=== PATIENT | male | born 1960 | race American Indian/Alaskan Native ===

== ENCOUNTER 2017-05-06 13:19 | Emergency (ER) | payer OTHER ==
[2017-05-06] MEDS ORDERED: Ketorolac 60 MG/2 ML SDV IM ONE (14:14)
[2017-05-06] MEDS ORDERED: Ondansetron 4 MG Tab.DIS PO ONE (14:15)
--- NOTE | 2017-05-06 15:14 | EDM.PDOC ---
ED HPI GENERAL MEDICAL PROBLEM - General Chief Complaint: General Stated Complaint: COUGH/CHEST PAIN/TROUBLE BREATHING Time Seen by Provider: 05/06/17 13:55 Source of Information: Reports: Patient History Limitations: Reports: No Limitations - History of Present Illness INITIAL COMMENTS - FREE TEXT/NARRATIVE: History of present illness: []Patient's had cold symptoms for 2 weeks and has been progressively worsening. He complains of body aches vomiting, diarrhea, cough and weakness. Review of systems: As per history of present illness and below otherwise all systems reviewed and negative. Past medical history: As per history of present illness and as reviewed below otherwise noncontributory. Surgical history: As per history of present illness and as reviewed below otherwise noncontributory. Social history: No reported history of drug or alcohol abuse. Family history: As per history of present illness and as reviewed below otherwise noncontributory. Physical exam: General: Well developed, well nourished in NAD HEENT: Atraumatic, normocephalic, pupils reactive, negative for conjunctival pallor or scleral icterus, mucous membranes moist, throat clear, neck supple, nontender, trachea midline. Lungs: Clear to auscultation, breath sounds equal bilaterally, chest nontender. Heart: S1S2, regular, negative for clicks, rubs, or JVD. Abdomen: Soft, nondistended, nontender. Negative for masses or hepatosplenomegaly. Negative for costovertebral tenderness. Pelvis: Stable nontender. Genitourinary: Deferred. Rectal: Deferred. Extremities: Atraumatic, negative for cords or calf pain. Neurovascular unremarkable. Neuro: Awake, alert, oriented. Cranial nerves II through XII unremarkable. Cerebellum unremarkable. Motor and sensory unremarkable throughout. Exam nonfocal. Diagnostics: []Influenza A positive chest x-ray is negative Therapeutics: [] Impression: []Influenza a Plan: []Increase fluids, Motrin for pain follow-up with primary care as needed return if symptoms worsen or change Definitive disposition and diagnosis as appropriate pending reevaluation and review of above. body aches Pain Score (Numeric/FACES): 6 - Related Data Allergies Allergy/AdvReac Type Severity Reaction Status Date / Time Penicillins Allergy Stomach Verified 05/06/17 13:27 Ache Home Meds: Home Meds . [Unable to Verify Home Med List] 05/06/17 [History] Past Medical History - Past Health History Medical/Surgical History: Denies Medical/Surgical History Social & Family History - Family History Family Medical History: Noncontributory Cardiac: Reports: [place] - Tobacco Use Smoking Status *Q: Never Smoker - Caffeine Use Caffeine Use: Reports: Coffee, Soda - Recreational Drug Use Recreational Drug Use: No ED ROS GENERAL - Review of Systems Review Of Systems: See Below (See history of present illness) ED EXAM, GENERAL - Physical Exam Exam: See Below (See history of present illness) Course - Vital Signs Last Recorded V/S: Last Vital Signs Temp 100.3 F 05/06/17 13:28 Pulse 105 H 05/06/17 13:28 Resp 18 05/06/17 13:28 BP 134/84 05/06/17 13:28 Pulse Ox 95 05/06/17 13:28 - Orders/Labs/Meds Orders: Active Orders 24 hr Category Date Time Status Chest 2V [CR] Stat Exams 05/06/17 14:15 Taken Meds: Medications Discontinued Medications Generic Name Dose Route Start Last Admin Trade Name Jovita PRN Reason Stop Dose Admin Ketorolac Tromethamine 60 mg 05/06/17 14:14 05/06/17 14:31 Toradol IM 05/06/17 14:15 60 mg ONETIME ONE Administration Ondansetron HCl 4 mg 05/06/17 14:15 05/06/17 14:31 Zofran Odt PO 05/06/17 14:16 4 mg ONETIME ONE Administration Departure - Departure Time of Disposition: 15:13 Disposition: Home, Self-Care 01 Condition: Good Clinical Impression: Influenza A - Discharge Information Referrals: PCP,None [Primary Care Provider] - Additional Instructions: The following information is given to patients seen in the emergency department who are being discharged to home. This information is to outline your options for follow-up care. We provide all patients seen in our emergency department with a follow-up referral. The need for follow-up, as well as the timing and circumstances, are variable depending upon the specifics of your emergency department visit. If you don't have a primary care physician on staff, we will provide you with a referral. We always advise you to contact your personal physician following an emergency department visit to inform them of the circumstance of the visit and for follow-up with them and/or the need for any referrals to a consulting specialist. The emergency department will also refer you to a specialist when appropriate. This referral assures that you have the opportunity for follow-up care with a specialist. All of these measure are taken in an effort to provide you with optimal care, which includes your follow-up. Under all circumstances we always encourage you to contact your private physician who remains a resource for coordinating your care. When calling for follow-up care, please make the office aware that this follow-up is from your recent emergency room visit. If for any reason you are refused follow-up, please contact the [facility] Emergency Department at and asked to speak to the emergency department charge nurse. Tylenol, Motrin, increase fluids, follow-up with primary care as needed. [facility] [address] [place] [id number] - My Orders Last 24 Hours: My Active Orders 05/06/17 14:15 Chest 2V [CR] Stat - Assessment/Plan Last 24 Hours: My Active Orders 05/06/17 14:15 Chest 2V [CR] Stat
--- NOTE | 2017-05-07 14:28 | CR ---
EXAM DATE: 05/06/17 PATIENT'S AGE: 56 Patient: DUKE LITTLE Facility: [place], [place] Site . Site : 07/04/1990 Study: XRay Chest [id number] 2:44:20 PM Ordering Physician: Yann Solis Final Report: Indication: Pain. Shortness of breath. Technique: Two-view chest. Findings: Clear lungs. Normal heart size and pulmonary vascularity. Normal included skeletal thorax. Impression: Normal two view chest. Dictated by Pino Singh MD @ May 06 2017 2:55PM (Electronic Signature) Report Signed by Proxy. JANEL
== END 2017-05-06 15:29 | disposition home or self-care (01) ==
LOC: MW.ED 13:19 → EDBD 13:19 → MW.ED 15:29
DX: J10.1 Influenza due to other identified influenza virus with other respiratory manifestations (principal); Z88.0 Allergy status to penicillin
CPT/HCPCS: 71046; 87804; 93005; 96372; 99284; A9270; J1885; 99283